=== PATIENT | male | born 2000 | race Caucasian/White ===

== ENCOUNTER 2021-01-24 10:21 | Emergency (ER) | payer OTHER, SELFPAY ==
[2021-01-24 10:39] VITALS: BP 140/79; PULSE 85; RESP 20; TEMP 36.6; O2SAT 97; BMI 34.8
--- NOTE | 2021-01-24 11:04 | HMH.EDUTC ---
[facility] Clinical Impression: Thoracic back pain Qualifiers: Chronicity: acute Back pain laterality: midline Qualified Code(s): M54.6 - Pain in thoracic spine Disposition: Home, Self-Care Condition on Discharge: Good Instructions: DI for Thoracic Back Pain, Thoracic Back Pain Additional Instructions: Go home and rest. It would be best if you rested tomorrow too. No heavy lifting. No twisting. Take the oral medications as directed. The muscle relaxer (robaxin) will make you drowsy, so don't drive or operate heavy machinery after taking it. Follow up with your regular doctor. GO TO THE ER FOR ANY WORSENING SYMPTOMS OR CONCERN, ESPECIALLY BOWEL OR BLADDER ISSUES, SADDLE AREA NUMBNESS, FEVER, ETC Prescriptions: predniSONE [Prednisone 20mg Tab] 20 mg PO BID 5 Days #10 tab Transmission Status: Received by [id number] Methocarbamol [Robaxin 500mg Tab] 500 mg PO BIDP PRN #30 tab PRN Reason: Muscle Spasm Transmission Status: Received by [id number] Referrals: True Mendoza MD [Primary Care Provider] - Forms: Work/School Release Time of Disposition: 11:46 Medical Decision Making - Medical Records Medical records reviewed: No: I reviewed the patient's medical records. - Aashish Inquiry Pt receiving controlled substance: No Vital Signs: 01/24/21 10:39 01/24/21 11:10 Temperature 97.9 F 97.9 F Temperature Source Oral Pulse Rate 85 Pulse Rate [Right Brachial] 85 Respiratory Rate 20 20 Blood Pressure 140/79 Blood Pressure [Right Arm] 140/79 Blood Pressure Mean [Right Arm] 99 Blood Pressure Source [Right Arm] Automatic Cuff Blood Pressure Position [Right Arm] Sitting 02 Sat by Pulse Oximetry 97 Oxygen Delivery Method Room Air - Radiology Data #1 Image(s): T-Spine Image Reviewed: Yes I reviewed the patient's radiology image, Yes I have reviewed radiologist's interpretation Preliminary Findings: Abnormal (patient was notified of the results of this x-ray and instructed to follow up with pcp regarding further evaluation. ), No Fracture Seen [facility] [place] - General Stated complaint: middle/lower back pain Time Seen by Provider: 01/24/21 11:04 Mode of Arrival: Ambulatory Source of Information: Patient Limitations: No Limitations Description of Symptoms (Recalled from Triage Doc. by RN): PATIENT C/O MID BACK PAIN THAT RADIATES TO LOWER BACK SINCE MONDAY. 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 He denies any known injury. He states that he has had back pain on and off since he was in high school, but this has been worse than his normal pain. - Related Data Previous Rx's Medication Instructions Recorded Methocarbamol [Robaxin 500mg Tab] 500 mg PO BIDP PRN #30 tab 01/24/21 predniSONE [Prednisone 20mg 20 mg PO BID 5 Days #10 tab 01/24/21 Tab] Allergies Allergy/AdvReac Type Severity Reaction Status Date / Time azithromycin Allergy Verified 01/24/21 10:43 - Worker's Comp Is this a Worker's Comp case?: No [facility] History - Hepatitis A Screen Drug use history?: No High risk sexual behaviors?: No History of sexually transmitted infection?: No Currently employed?: No Childcare worker?: No Do you have indoor plumbing?: Yes Do you have electricity?: Yes Attestation statement:: This patient has been screened for Hepatitis A risk factors. I have reviewed the patient's past medical history: Yes - Social History Smoking Status: Never smoker Alcohol Intake: never Occupational Status: other Household Members: adopted family ROS Obtained: Yes All systems reviewed & no
[2021-01-24 11:10] VITALS: BP 140/79; PULSE 85; RESP 20; TEMP 36.6; O2SAT 97
--- NOTE | 2021-01-24 11:10 | XR_ITS ---
PROCEDURE: XR THORACIC SPINE 3V CLINICAL INDICATION: thoracic back pain, no recent injury COMPARISON: No exams were available for comparison FINDINGS: There is slight decrease in height anteriorly of the T11 vertebral body. There are no previous exams for comparison to determine if this is acute or chronic. CT or MRI may provide further evaluation. There is a nodular opacity in the left lower lobe at 19 mm. There is mild midthoracic curvature convex right. Other findings:None. IMPRESSION: Minimal wedging of T11 age indeterminate. 19 mm left lower lobe nodule. This may be better evaluated with chest CT Dictated by: Cheko Quiroz MD 01/24/2021 11:47 Cheko Quiroz MD in [place] 01/24/2021 11:47
== END 2021-01-24 11:53 | disposition home or self-care (01) ==
PROVIDERS: Emergency Provider Nurse Practitioner Family; PCP Internal Medicine Adolescent Medicine
DX: M54.6 Pain in thoracic spine (principal); M54.5 Low back pain
CPT/HCPCS: 72072; 99202; G0463

== ENCOUNTER 2023-07-23 17:15 | Emergency (ER) | payer OTHER, SELFPAY ==
[2023-07-23 17:16] VITALS: BP 156/96; PULSE 76; RESP 18; TEMP 36.8; O2SAT 98; BMI 38.0
--- NOTE | 2023-07-23 17:32 | EXP.UTC ---
Discharge Plan Disposition Patient Disposition: Home, Self-Care Condition: Good Prescriptions Prescriptions: New doxycycline monohydrate [doxycycline monohydrate] 100 mg tablet 100 mg PO Q12 7 Days Qty: 14 0RF No Action methocarbamol 500 MG tablet 500 mg PO BIDP PRN (Reason: Muscle Spasm) Qty: 30 0RF prednisone 20 MG tablet 20 mg PO BID 5 Days Qty: 10 0RF Referrals Follow up/Referrals: True Mendoza MD [Primary Care Provider] - See instructions Activity Restrictions/Add. Instructions Additional Instructions/Restrictions: Drink plenty of fluids. Water would be the best thing to drink. Take tylenol for pain or fever. Take the medications as directed. Follow up with your regular doctor. GO TO THE ER FOR ANY WORSENING SYMPTOMS Clinical Impressions Clinical Impression: Urethritis Instructions Patient Instructions: Urethritis, DI for Urethritis Discharge ED Provider: Héctor Pabon [facility] [place] HPI General Stated complaint: pain while urinating Mode of Arrival: Ambulatory Source of Information: Patient Limitations: No Limitations Time Seen by Provider: 07/23/23 17:32 Description of Symptoms (Recalled from Triage Doc. by RN): Pain with urination for 2 days. HEENT Symptoms (Recalled from RN notes): No Resp Symptoms (Recalled from RN notes): No Skin Symptoms (Recalled from RN notes): No MS Symptoms (Recalled from RN notes): No Functional Status (Recalled from RN notes): wnl History of Present Illness Provider Complaint: He state that he has had urethral burning with urination for the past 3 to 4 days. Related Data Previous Rx's Medication Instructions Recorded methocarbamol 500 mg tablet 500 mg PO BIDP PRN Muscle Spasm 01/24/21 #30 tabs prednisone 20 mg tablet 20 mg PO BID 5 days #10 tabs 01/24/21 doxycycline monohydrate 100 mg 100 mg PO Q12 7 days #14 tabs 07/23/23 tablet Allergies Allergy/AdvReac Type Severity Reaction Status Date / Time azithromycin Allergy Verified 01/24/21 10:43 Worker's Comp Is this a Worker's Comp case?: No [facility] Disclaimer: The information contained in this section may have been updated after the patient was seen, as this information can be updated by other users. Social History Smoking Status: Never smoker alcohol intake: never current occupational status: other Travel in the last 8 weeks: None household members: adopted family ROS Obtained: Yes All systems reviewed & no additional complaints except as documented Constitutional Constitutional: Denies chills and Denies fever(s) Eyes Eyes: Denies eye discharge ENT Ears, Nose, Mouth, and Throat: Denies dizziness, Denies otalgia and Denies sore throat Cardiovascular Cardiovascular: Denies chest pain Respiratory Respiratory: Denies shortness of breath, Denies chest congestion, Denies cough, Denies stridor and Denies wheezing Gastrointestinal Gastrointestingal: Denies nausea or vomiting Genitourinary Male Genitourinary: Reports as per HPI, Reports urinary frequency and Reports urinary hesitancy Musculoskeletal Musculoskeletal: Reports system reviewed and no additional complaints, except as documented and Denies arthralgias Integumentary/Breasts Skin/Breast: Denies rash Neurologic Neurologic: Denies dizziness and Denies paresthesias Allergic/Immunologic Allergic/Immunologic: Denies wheezing Physical Exam General General appearance: alert and in no apparent distress Head Head exam: atraumatic, normocephalic and normal inspection Eye Eye exam: Present normal appearance, PERRL and EOMI ENT ENT exam: Present normal exam, normal oropharynx, mucous membranes moist, TM's normal bilaterally and normal external ear exam Neck Neck exam: Present normal inspection, full ROM and trachea midline; Absent meningismus or lymphadenopathy Chest Chest inspection: Present normal inspection and symmetric chest wall rise; Absent tenderness Respiratory Respiratory exam: Present normal lung
[2023-07-23 17:35] LABS: Microscopic, Urine URINE MICROSCOPIC (MICROSCOPIC)
[2023-07-23 17:39] LABS: Appearance,Urine CLEAR (Clear); Bilirubin,Urine Negative (Negative); Blood, Urine Negative (Negative); Color,Urine YELLOW (Yellow); Glucose,Urine (UA) Negative (Negative); Ketones,Urine Negative (Negative); Leukocyte Esterase,Urine Negative (Negative); Nitrate,Urine Negative (Negative); Protein,Urine Negative (Negative); Urobilinogen,Urine 0.2 EU/dl (0.2)
[2023-07-23 18:02] LABS: WBC,Urine Occasional #/hpf (0-3)
[2023-07-23 18:10] VITALS: BP 156/96; PULSE 76; RESP 18; TEMP 36.8; O2SAT 98
[2023-07-25 22:12] LABS: Neisseria gonorrhoeae, NAA Negative (Negative)
== END 2023-07-23 18:11 | disposition home or self-care (01) ==
PROVIDERS: Emergency Provider Nurse Practitioner Family; PCP Internal Medicine Adolescent Medicine
DX: N34.2 Other urethritis (principal)
CPT/HCPCS: 81001; 87086; 87491; 87591; 99212; 99214; G0463

== ENCOUNTER 2024-01-20 15:03 | Emergency (ER) | payer OTHER, SELFPAY ==
[2024-01-20 15:30] VITALS: BP 161/99; PULSE 81; RESP 19; TEMP 37.1; O2SAT 97; BMI 37.3
[2024-01-20 15:51] LABS: Coronavirus 19, PCR Not Detected (NotDetected); Influenza A, PCR Not Detected (NotDetected); Influenza B, PCR Not Detected (NotDetected)
--- NOTE | 2024-01-20 15:58 | EXP.UTC ---
Discharge Plan Disposition Patient Disposition: Home, Self-Care Condition: Good Referrals Follow up/Referrals: True Mendoza MD [Primary Care Provider] - See instructions Activity Restrictions/Add. Instructions Additional Instructions/Restrictions: No sign of a bacterial infection. Likely viral. Viruses can take 7-14 days to run their course. Nasal saline and bulb syringe or nose Chaya to remove nasal drainage to help with nasal congestion. Hard to eat, drink, sleep with nasal congestion so important to keep this cleaned out. Monitor temp. Tylenol or Motrin as needed for pain or fever Encourage fluids, water, Gatorade, Powerade, Pedialyte if infant/toddler/child Warm salt water gargles Warm fluids Sore throat lozenges Sleep elevated Humidifier/vaporizer Follow-up immediately for new or worsening symptoms or no noticeable improvement over the next 48-72 hours. Clinical Impressions Clinical Impression: Upper respiratory infection, viral Instructions Patient Instructions: Common Cold Discharge ED Provider: Deanna ([facility])[place] [facility] [place] General Stated complaint: exposed to covid-tegan, sore throat, JIMENEZ Mode of Arrival: Ambulatory Source of Information: Patient Limitations: No Limitations Time Seen by Provider: 01/20/24 15:58 Description of Symptoms (Recalled from Triage Doc. by RN): Pt has been exposed to covid and flu at work. His symptoms are runny nose, JIMENEZ, nasal congestion, and cough. HEENT Symptoms (Recalled from RN notes): Yes Resp Symptoms (Recalled from RN notes): No Skin Symptoms (Recalled from RN notes): No MS Symptoms (Recalled from RN notes): No Functional Status (Recalled from RN notes): n/a History of Present Illness Provider Complaint: 23 yr old presents for runny nose, JIMENEZ, nasal congestion, and cough. exposed to covid and flu at work. Related Data Allergies Allergy/AdvReac Type Severity Reaction Status Date / Time azithromycin Allergy Verified 01/20/24 15:41 Worker's Comp Is this a Worker's Comp case?: No [facility] Disclaimer: The information contained in this section may have been updated after the patient was seen, as this information can be updated by other users. 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 alcohol intake: never current occupational status: other Travel in the last 8 weeks: None household members: adopted family ROS Obtained: Yes All systems reviewed & no additional complaints except as documented Constitutional Constitutional: Reports system reviewed and no additional complaints, except as documented, Reports as per HPI, Reports fever(s) and Reports headache(s) Eyes Eyes: Reports system reviewed and no additional complaints, except as documented ENT Ears, Nose, Mouth, and Throat: Reports system reviewed and no additional complaints, except as documented, Reports as per HPI, Reports headache(s), Reports nasal congestion, Reports nasal discharge, Reports sinus pressure and Reports sore throat Cardiovascular Cardiovascular: Reports system reviewed and no additional complaints, except as documented Respiratory Respiratory: Reports system reviewed and no additional complaints, except as documented, Reports as per HPI and Reports cough Gastrointestinal Gastrointestingal: Reports system reviewed and no additional complaints, except as documented Musculoskeletal Musculoskeletal: Reports system reviewed and no additional complaints, except as documented Integumentary/Breasts Skin/Breast: Reports system reviewed and no additional complaints, except as documented Neurologic Neurologic: Reports system reviewed and no additional complaints, except as documented and Reports headache(s) Endocrine Endocrine: Reports system reviewed and no additional complaints, except as documented Hematologic/Lymphatic Henatologic/Lymphatic: Reports system reviewed and no additional complaints, except as documented Allergic/Immunologic Allergic/Immunologic: Reports system reviewed and no additional complaints, except as documented Physical Exam General General appearance: alert and in no apparent distress Head Head exam: atraumatic Eye Eye exam: Present normal appearance and PERRL ENT ENT exam: Present normal exam, normal oropharynx and TM's normal bilaterally Respiratory Respiratory exam: Present normal lung sounds bilaterally Cardiovascular Cardiovascular exam: Present regular rate and normal rhythm Neurological Exam Neurological exam: Present alert Skin Skin exam: Present warm and intact Medical Decision Making Medical Records Medical records reviewed: Yes I reviewed the patient's medical records. Aashish Inquiry Pt receiving controlled substance: No Aashish was queried for this patient: No Vital Signs: 01/20/24 15:30 Temperature 98.7 F Temperature Source Oral Pulse Rate [Right Radial] 81 Respiratory Rate 19 Blood Pressure [Right Arm] 161/99 H Blood Pressure Mean [Right Arm] 119 Blood Pressure Source [Right Arm] Automatic Cuff Blood Pressure Position [Right Arm] Sitting 02 Sat by Pulse Oximetry 97 Oxygen Delivery Method Room Air Lab Data Lab results reviewed: Yes I reviewed the patient's lab results. Orders (Tests/Meds): ORDERS Category Date Time Status Rapid PCR Covid and Flu A/B Stat Lab 01/20/24 15:36 Received
[2024-01-20 16:20] VITALS: BP 161/99; PULSE 81; RESP 19; TEMP 37.1; O2SAT 97
== END 2024-01-20 16:23 | disposition home or self-care (01) ==
PROVIDERS: Emergency Provider Nurse Practitioner Family; PCP Internal Medicine Adolescent Medicine
DX: R51.9 Headache, unspecified (principal); R09.81 Nasal congestion; R07.0 Pain in throat; J06.9 Acute upper respiratory infection, unspecified; R05.9 Cough, unspecified; B34.9 Viral infection, unspecified
CPT/HCPCS: 87636; 99212; 99213; G0463

== ENCOUNTER 2024-02-11 14:47 | Outpatient (CLI) | payer OTHER, SELFPAY ==
--- NOTE | 2024-02-11 15:12 | XR_ITS ---
PROCEDURE INFORMATION: Exam: XR Chest Exam date and time: 02/11/2024 3:04 PM Age: 23 years old Clinical indication: Cough; Additional info: Cough, bronchitis TECHNIQUE: Imaging protocol: Radiologic exam of the chest. Views: 2 views. COMPARISON: CR XR THORACIC SPINE 3V 01/24/2021 11:16 AM FINDINGS: Lungs: Unremarkable. No consolidation. Pleural spaces: Unremarkable. No pleural effusion. No pneumothorax. Heart/Mediastinum: Unremarkable. No cardiomegaly. Bones/joints: Unremarkable. IMPRESSION: No acute findings.
== END 2024-02-11 23:59 ==
LOC: RAD 14:47
PROVIDERS: PCP Internal Medicine Adolescent Medicine; Visit Provider Physician Assistant
DX: R04.2 Hemoptysis (principal)
CPT/HCPCS: 71046

== ENCOUNTER 2024-05-07 04:15 | Emergency (ER) | payer OTHER, SELFPAY ==
[2024-05-07 04:16] VITALS: BP 156/99; PULSE 86; RESP 20; TEMP 36.7; O2SAT 100; BMI 35.4
--- NOTE | 2024-05-07 04:22 | XR_ITS ---
PROCEDURE INFORMATION: Exam: XR Left Hand Exam date and time: 05/07/2024 4:24 AM Age: 23 years old Clinical indication: Pain; Finger(s); Left; Additional info: Left little finger distal injury rule out open FX TECHNIQUE: Imaging protocol: Radiologic exam of the left hand. Views: 3 or more views. COMPARISON: No relevant prior studies available. FINDINGS: Bones/joints: Comminuted fracture involving the tuft of the 5th distal phalanx with displacement of the fracture fragments. Bones are otherwise intact. No dislocation. Soft tissues: Severe soft tissue injury/laceration of the 5th distal finger tip including the nail bed. No radiopaque foreign body. IMPRESSION: Severe soft tissue injury/laceration of the 5th distal finger tip with an open comminuted tuft fracture of the 5th distal phalanx.
--- NOTE | 2024-05-07 04:30 | HMH.EDGENADL ---
Discharge Plan Disposition Patient Disposition: Xfer Short-Term Hosp Chief Complaint: Animal Bite Referrals Follow up/Referrals: True Mendoza MD [Primary Care Provider] - See instructions Activity Restrictions/Add. Instructions Additional Instructions/Restrictions: Check into the emergency department at [facility] with the packet which will be provided here. Go directly to the emergency department after leaving here. Clinical Impressions Clinical Impression: Open fracture of distal phalanx of digit of left hand, Dog bite, Superficial laceration of face Instructions Patient Instructions: Animal Bites Discharge ED Provider: Vick Clemons General Adult HPI General Chief complaint: Animal Bite Stated complaint: cut on lip and L pinky Time Seen by Provider: 05/07/24 04:17 Mode of Arrival: Ambulatory Source of Information: Patient Limitations: No Limitations Description of Symptoms (Recalled from ER Triage Doc. by RN): Pt to ED with dog bite to R face and left pinky finger History of Present Illness HPI narrative: Please note that above description of symptoms, in this electronic medical record under categorization of recalled from ER triage doctor by RN are reflective of an initial nursing assessment, however, is not reflective of my full history and physical exam that was personally taken and clarified. Consequentially, this preceding description of symptoms, which may include the patient's categorized chief complaint in the EMR, do not reflect my personal clinical impression, and the ultimate description of history of present illness and patient stated complaints should be deferred to this section of the note. Unless stated otherwise or congruent with this section of the note, additional signs, symptoms, or incongruence should be interpreted as inaccurate with my clinical impression. Related Data Allergies Allergy/AdvReac Type Severity Reaction Status Date / Time azithromycin Allergy Verified 01/20/24 15:[address] [facility] Disclaimer: The information contained in this section may have been updated after the patient was seen, as this information can be updated by other users. 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 alcohol intake: never current occupational status: other Travel in the last 8 weeks: None household members: adopted family ROS Obtained: Yes All systems reviewed & no additional complaints except as documented Physical Exam General General appearance: alert and in no apparent distress Head Head exam: atraumatic and normocephalic Eye Eye exam: Present normal appearance, PERRL and EOMI ENT ENT exam: Present mucous membranes moist and other (Multiple superficial abrasions overlying right upper lip with a couple of punctate through and through lacerations into oral mucosa.) Neck Neck exam: Present normal inspection, full ROM and trachea midline Respiratory Respiratory exam: Absent respiratory distress, wheezes, stridor, accessory muscle use or prolonged expiratory phase Cardiovascular Cardiovascular exam: Present normal rhythm Abdominal Exam Abdominal exam: Present soft; Absent distention, tenderness, guarding, rebound or rigidity Extremities Exam Extremities exam: Present tenderness and other (Partial amputation distal aspect of left fifth finger. Complete nail avulsion. Palpable bone.); Absent edema Neurological Exam Neurological exam: Present alert, oriented X3, CN II-XII intact and normal gait; Absent motor sensory deficit Skin Skin exam: Present warm and dry; Absent diaphoresis or erythema Medical Decision Making Medical Records Medical records reviewed: Yes I reviewed the patient's medical records. Aashish Inquiry Pt receiving controlled substance: No Aashish was queried for this patient: No Vital Signs: 05/07/24 04:16 Temperature 98.0 F Temperature Source Oral Pulse Rate [Right Radial] 86 Respiratory Rate 20 Blood Pressure [Right Arm] 156/99 H Blood Pressure Mean [Right Arm] 118 Blood Pressure Source [Right Arm] Automatic Cuff Blood Pressure Position [Right Arm] Sitting 02 Sat by Pulse Oximetry 100 Oxygen Delivery Method Room Air Orders (Tests/Meds): ED MEDICATIONS Generic Name Dose Route Start Last Admin Trade Name Freq PRN Reason Stop Dose Admin Cefazolin Sodium 2 gm/ Sodium 100 mls @ 200 mls/hr 05/07/24 04:47 Chloride IV 05/07/24 05:16 ONCE ONE Discontinued Medications Generic Name Dose Route Start Last Admin Trade Name Freq PRN Reason Stop Dose Admin Acetaminophen 1,000 mg 05/07/24 04:22 05/07/24 04:32 Acetaminophen 500mg Tab PO 05/07/24 04:23 1,000 mg ONCE ONE Administration Ibuprofen 600 mg 05/07/24 04:22 05/07/24 04:33 Ibuprofen 600 Mg Tablet PO 05/07/24 04:23 600 mg ONCE ONE Administration Lidocaine/Epinephrine 20 ml 05/07/24 04:30 05/07/24 04:31 Lidocaine 1% W/Epi 1:100,000 20ml Vial SQ 05/07/24 04:31 20 ml ONCE ONE Administration Oxycodone HCl 5 mg 05/07/24 04:22 05/07/24 04:33 Oxycodone 5mg Immediate Release Tablet PO 05/07/24 04:23 5 mg ONCE ONE Administration Tetanus/Reduced Diphtheria/Acell Pertussis 0.5 ml 05/07/24 04:22 05/07/24 04:33 Tet/Diphth/Pert-Adult 0.5ml Syringe IM 05/07/24 04:23 0.5 ml .ONCE ONE Administration ORDERS Category Date Time Status Hand XR left minimum 3 views [XR hand LT min 3V] Stat Exams 05/07/24 04:22 Taken Medical Decision Narrative: 23-year-old male otherwise healthy presenting with dog bite. Patient states that his dog bit him just before arrival. Vitamins right upper lip, as well as left little finger. Patient has had rabies vaccinations in the past, is not currently up-to-date, but is his dog and has not been exhibiting any abnormal behavior otherwise. No other injuries were sustained. Patient up-to-date on vaccinations himself other than tetanus, he does not remember his last Tdap. History was obtained via conversation with patient. On arrival, patient hemodynamically stable, alert, oriented x4, appropriate, GCS 15, moving all extremities spontaneously, pupils equal and reactive to light. Full physical exam performed and significant for superficial abrasions overlying right upper lip without any lacerations amenable to closure. He does have a couple of punctate through and through lacerations going into oral mucosa. No dental trauma. Left upper extremity with avulsion of distal aspect of left small finger with partial nail avulsion. Eponychial fold intact. Palpable bone. Neurovascularly intact. Differential includes open fracture, partial amputation, nailbed injury, facial laceration, foreign body, among others.. Patient was given Tdap, oxycodone, Tylenol, Motrin for symptomatic management and correction of underlying abnormalities. Workup independently interpreted and significant for open fracture of distal tuft with partial amputation of left small finger. See radiology read for full review of final results. Due to bleeding, lidocaine with epinephrine was placed in medicine, patient's digit was placed in line with epi to achieve hemostasis. Because patient has complex, open, partial amputation of distal digit, warrants evaluation by hand surgeon. [facility] was contacted and case was discussed at length, graciously excepted for transfer under Dr. Fajardo. It Architect disclaimer Much of this encounter note is an electronic decision science analyst spoken language to printed text. Electronic decision science analyst of the spoken language may permit errors. Although I have reviewed the note, some errors may still exist. Critical Care Critical Care Time Critical Care Time: No
[2024-05-07] MEDS: LIDOCAINE 1% W/EPI 1:100,000 20ML VIAL 20 ML SQ (04:31)
[2024-05-07] MEDS: ACETAMINOPHEN 500MG TAB 1000 MG PO (04:32)
[2024-05-07] MEDS: IBUPROFEN 600 MG TABLET PO (04:33)
[2024-05-07] MEDS: OXYCODONE 5MG IMMEDIATE RELEASE TABLET 5 MG PO (04:33)
[2024-05-07] MEDS: TET/DIPHTH/PERT-ADULT 0.5ML SYRINGE 0.5 ML IM (04:33)
--- NOTE | 2024-05-07 04:46 | PC.NURSE ---
Called [facility] about transfer of the pt for Hand specialist. speaking with Dr Clemons now. CR
[2024-05-07] MEDS: CEFAZOLIN SODIUM 2 GM in 0.9 % SODIUM CHLORIDE 100 ML IV (04:58)
--- NOTE | 2024-05-07 05:11 | PC.NURSE ---
report called to Paige HADDAD @ [facility] [place]
[2024-05-07 05:26] VITALS: BP 156/99; PULSE 86; RESP 20; TEMP 36.7; O2SAT 100
== END 2024-05-07 05:28 | disposition short-term general hospital (02) ==
PROVIDERS: Emergency Provider Emergency Medicine; PCP Internal Medicine Adolescent Medicine
DX: S62.637B Displaced fracture of distal phalanx of left little finger, initial encounter for open fracture (principal); S01.81XA Laceration without foreign body of other part of head, initial encounter; W54.0XXA Bitten by dog, initial encounter; Z23 Encounter for immunization
CPT/HCPCS: 73130; 90471; 90715; 96365; 99285; J0690

== ENCOUNTER 2024-07-24 09:05 | Emergency (ER) | payer OTHER, SELFPAY ==
[2024-07-24 09:10] VITALS: BP 146/92; PULSE 111; RESP 20; TEMP 37.7; O2SAT 95; BMI 36.7
--- NOTE | 2024-07-24 09:19 | EXP.UTC ---
Discharge Plan Disposition Patient Disposition: Home, Self-Care Condition: Good Prescriptions Prescriptions: New ctoslxmuqspcucu-cwkzpojpm-LH [Bromfed DM] 2-30-10 mg/5 mL Syrup 5 ml PO Q6H PRN (Reason: Cough) Qty: 240 0RF amoxicillin 500 mg tablet 500 mg PO TID 10 Days Qty: 30 0RF Referrals Follow up/Referrals: True Mendoza MD [Primary Care Provider] - See instructions Activity Restrictions/Add. Instructions Additional Instructions/Restrictions: Drink plenty of fluids. Take tylenol or ibuprofen for pain or fever. Take the medications as directed. Follow up with your regular doctor. GO TO THE ER FOR ANY WORSENING SYMPTOMS Clinical Impressions Clinical Impression: COVID-19, Pharyngitis Stand Alone Forms Stand Alone Forms: Work/School Release Instructions Patient Instructions: DI for Viral Syndrome Print Language Print Language: Maori Discharge ED Provider: Héctor Pabon [facility] [place] HPI General Stated complaint: headache, sore throat, vomiting, body aches Time Seen by Provider: 07/24/24 09:19 Related Data Previous Rx's ?Medication ?Instructions ?Recorded amoxicillin 500 mg tablet 500 mg PO TID 10 days #30 tabs 07/24/24 rtfycantflscvxt-afgffnchoinkzoe-PG 5 ml PO Q6H PRN Cough #240 mL 07/24/24 2 mg-30 mg-10 mg/5 mL oral syrup (Bromfed DM) Allergies Allergy/AdvReac Type Severity Reaction Status Date / Time azithromycin Allergy Verified 01/20/24 15:41 [facility] Disclaimer: The information contained in this section may have been updated after the patient was seen, as this information can be updated by other users. Medical History (Updated 07/24/24 @ 10:19 by Héctor Pabon APRN) No significant past medical history Social History TUCKER) Smoking Status: Never smoker alcohol intake: never current occupational status: other Travel in the last 8 weeks: None household members: adopted family ROS Obtained: Yes All systems reviewed & no additional complaints except as documented Constitutional Constitutional: Reports chills and Reports fever(s) Eyes Eyes: Denies eye discharge ENT Ears, Nose, Mouth, and Throat: Reports as per HPI Cardiovascular Cardiovascular: Denies chest pain Respiratory Respiratory: Denies chest congestion and Reports cough Gastrointestinal Gastrointestingal: Reports nausea; Denies abdominal pain, constipation, cramping, diarrhea or vomiting Musculoskeletal Musculoskeletal: Denies arthralgias Integumentary/Breasts Skin/Breast: Denies rash Neurologic Neurologic: Denies paresthesias Physical Exam General General appearance: alert and in no apparent distress Head Head exam: atraumatic, normocephalic and normal inspection Eye Eye exam: Present normal appearance, PERRL and EOMI ENT ENT exam: Present mucous membranes moist and normal external ear exam Expanded ENT Exam TM/Canal exam: Bilateral TM: erythema and bulging Nose exam: Absent sinus tenderness Mouth exam: Present normal external inspection; Absent drooling Teeth exam: Present normal inspection Throat exam: Present tonsillar erythema, tonsillomegaly and tonsillar exudate Neck Neck exam: Present normal inspection, full ROM and trachea midline; Absent tenderness, meningismus or lymphadenopathy Chest Chest inspection: Present normal inspection and symmetric chest wall rise; Absent tenderness Respiratory Respiratory exam: Present normal lung sounds bilaterally; Absent respiratory distress, wheezes, stridor or accessory muscle use Cardiovascular Cardiovascular exam: Present regular rate and normal rhythm; Absent systolic murmur or diastolic murmur Abdominal Exam Abdominal exam: Present soft and normal bowel sounds; Absent distention, tenderness, guarding, rebound or rigidity Extremities Exam Extremities exam: Present normal inspection and normal capillary refill; Absent calf tenderness Back Exam Back exam: Present normal inspecti
[2024-07-24 09:25] LABS: Influenza A, PCR Not Detected (NotDetected); Influenza B, PCR Not Detected (NotDetected)
[2024-07-24 09:25] LABS: UTC Strep Screen (Rapid) Negative (Negative)
[2024-07-24 10:12] LABS: Coronavirus 19, PCR Detected (NotDetected)
[2024-07-24 10:15] VITALS: BP 146/92; PULSE 111; RESP 20; TEMP 37.7; O2SAT 95
== END 2024-07-24 10:19 | disposition home or self-care (01) ==
PROVIDERS: Emergency Provider Nurse Practitioner Family; PCP Internal Medicine Adolescent Medicine
DX: U07.1 COVID-19 (principal); J02.8 Acute pharyngitis due to other specified organisms; R51.9 Headache, unspecified; R11.2 Nausea with vomiting, unspecified
CPT/HCPCS: 87636; 87880; 99212; 99214; G0463

== ENCOUNTER 2025-11-18 08:40 | Outpatient (CLI) | payer OTHER, SELFPAY ==
[2025-11-18 14:32] LABS: Coronavirus 19, PCR Not Detected (NotDetected); Influenza A, PCR Not Detected (NotDetected); Influenza B, PCR Not Detected (NotDetected)
--- OUTSIDE RECORDS SUMMARY | 2025-11-21 08:42 | XMS_ITS | Clinical Summary ---
Author Organization [facility] Address [address] [place] [address] Care Team Providers Care Sleeve Setter Lockstitch Name Role Phone True Mendoza MD Primary Care Provider + [phone] Allergies Active Allergy Reactions Criticality Noted Date Comments Azithromycin Rash Low 06/10/2020 Fluticasone Propionate Rash Low 06/10/2020 Medications No known medications Social History Tobacco Use Types Packs/Day Years Used Date Smoking Tobacco: Never Smokeless Tobacco: Never Alcohol Use Standard Drinks/Week Comments Never 0 (1 standard drink = 0.6 oz pur e alcohol) AUDIT-C Answer Date Recorded Q1: How often do you have a drink containing alc ohol? Never 06/10/2020 Average Number of Drinks Not on file 020 Frequency of Binge Drinking Not on file 05/27 Abuse Screen Answer Date Recorded Unsafe at Home or Work/School Not on file Feels Threatened by Someone? Not on file 10/2023 Does Anyone Keep You from Co ntacting Others or Doint Things Outside the Home? Not on file 09/07/2023 Physical Sign of Abuse Present Not on file 1 Housing Stability Answer Date Recorded Current Living Arrangements Not on file 08/27 Potentially Unsafe Housing Conditions Not on debi e 09/07/2023 Family and Community Support Answer Isai e Recorded Help with Day-to-Day Activities Not on file 09/07/2023 Lonely or Isolated Not on file 09/07/2023 Employment Answer Date Recorded Do you want help finding or keeping work or a shanta b? Not on file 09/07/2023 Disabilities Answer Date Recorded Concentrating, Remembering, or Making Decisions Difficulty Not on file 09/07/2023 Doing Errands Independently Difficulty Not on fi le 09/07/2023 Education Answer Date Recorded Help with school or training? Not on file Preferred Language Not on file 09/07/2023 Sex and Gender Information Value Date Recorded Sex Assigned at Not on file Legal Sex Male 8:18 AM EDT Gender Identity Not on file Sexual Orientation Not on file Last Filed Vital Signs Vital Sign Reading Time Taken Comments Blood Pressure 156/89 06/10/2020 8:30 AM EDT Pulse 80 06/10/2020 8:30 AM EDT Temperature 36.4 C (97.6 F) 06/10/2020 8:30 AM EDT Respiratory Rate 16 06/10/2020 8:30 AM EDT Oxygen Saturation 97% 06/10/2020 8:30 AM EDT Inhaled Oxygen Concentration - - Weight 111 kg (245 lb) 06/10/2020 8:30 AM EDT Height 170.2 cm (5' 7 ) 06/10/2020 8:30 AM EDT Body Mass Index 38.37 06/10/2020 8:30 AM EDT Plan of Treatment Health Maintenance Due Date Last Done Comments ANNUAL PHYSICAL 1999 HEPATITIS C SCREENING 1999 TDAP/TD VACCINES (1 - Tdap) 2018 INFLUENZA VACCINE 06/27/2025 Pneumococcal Vaccine 0-49 Aged Out No longer eligible based on patient's age to complete this topic Insurance Care Teams Sleeve Setter Lockstitch Relationship Specialty Start Date End Date True Mendoza MD [address] [place] [address] PCP - General Adolescent Medicine 06/10/20
--- OUTSIDE RECORDS SUMMARY | 2025-11-21 08:42 | XMS_ITS | Clinical Summary ---
Author Organization [facility] Address [address] [place] [address] Care Team Providers Care Kitchen Mechanic Name Role Phone No, Pcp PACKAGE CENTER SUPERVISOR Primary Care Provider Unavailabl e Social History Tobacco Use Types Packs/Day Years Used Date Smoking Tobacco: Never Assessed Sex and Gender Information Value Date Recorded Sex Assigned at Not on file Legal Sex Male 2:13 PM EDT Gender Identity Not on file Sexual Orientation Not on file Plan of Treatment Not on file Medical Devices Not on file Care Teams Kitchen Mechanic Relationship Specialty Start Date End Date No, Pcp, PACKAGE CENTER SUPERVISOR N/A Do not use PCP - General Family Medicine 05/28/20
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
--- OUTSIDE RECORDS SUMMARY | 2025-11-21 08:42 | XMS_ITS | Clinical Summary ---
Author Organization [facility] Address [address] [place], [place] [id number] Care Team Providers Care Lumber Sorter Machine Name Role Phone True Mendoza MD Primary Care Provider [phone] Allergies Active Allergy Reactions Criticality Noted Date Comments Azithromycin Hives Medium 05/07/2024 Fluticasone Hives Medium 06/12/2024 Medications loratadine (Claritin) 10 MG tablet Take 1 tablet (10 mg) by mouth 1 (one) time each day. Active Active Problems Problem Noted Date Diagnosed Date Dog bite of left hand 06/12/2024 Social History Tobacco Use Types Packs/Day Years Used Date Smoking Tobacco: Never Smokeless Tobacco: Never Tobacco Cessation:Counseling Given: Not Answered Alcohol Use Standard Drinks/Week Comments Yes 0 (1 standard drink = 0.6 oz pur e alcohol) Sex and Gender Information Value Date Recorded Sex Assigned at Not on file Legal Sex Male 4:41 AM EDT Gender Identity Not on file Sexual Orientation Not on file Last Filed Vital Signs Vital Sign Reading Time Taken Comments Blood Pressure 146/111 06/12/2024 9:49 AM EDT Pulse 84 06/12/2024 9:49 AM EDT Temperature 36.7 C (98 F) 05/07/2024 11:02 AM EDT Respiratory Rate 18 05/07/2024 11:02 AM EDT Oxygen Saturation 97% 06/12/2024 9:49 AM EDT Inhaled Oxygen Concentration - - Weight 109 kg (240 lb) 06/12/2024 9:49 AM EDT Height 175.3 cm (5' 9 ) 06/12/2024 9:49 AM EDT Body Mass Index 35.44 06/12/2024 9:49 AM EDT Plan of Treatment Health Maintenance Due Date Last Done Comments [facility]-Depression Screening 1999 [facility]-HIV Screening 1999 [facility]-Hepatitis C Screening 1999 [facility]-Infant/Child/Adol SDOH Screenings 1999 [facility]-Hepatitis B Vaccines (3 of 3 - 3-dose series) 07/19/2000 05/24/2000, 1999 [facility]-IPV Vaccines (4 of 4 - 4-dose series) 2003 05/24/2000, 1999, 1999 [facility]-Varicella Vaccines (2 of 2 - 2-dose childhood series) 2003 05/24/2000 HPV Vaccines (1 - Male 3-dose series) 2014 [facility]- SDOH Screenings 2017 [facility]-Adult SDOH Screenings 2017 [id number] Vaccine (3 - season) 2025 04/22/2021, 04/01/2021 [facility]-Influenza Vaccine (#1) 2025 08/23/2019 [facility]-DTaP,Tdap,and Td Vaccines (6 - Td or Tdap) 05/07/2034 05/07/2024, 08/16/2000, 1999, Additional history exists [facility]-Zoster Vaccines (1 of 2) 2049 05/24/2000 [facility]-HIB Vaccines Completed 05/24/2000, , 1999 [facility]-Obesity Intervention Completed 024, 05/16/2024, 05/16/2024 [facility]-Hepatitis A Vaccines Aged Out No longer eligible based on patient's age to complete this topic [facility]-Pneumococcal Vaccine: Pediatrics (0 to 5 Years) and At-Risk Patients (6 to 49 Years) Aged Out No longer eligible based on patient's age to complete this topic [facility]-Rotavirus Vaccines Aged Out No lo nger eligible based on patient's age to complete this topic Goals Goal Patient Goal Type Associated Problems Recent Progress Patient-Stated? Author Patient will verbalize understanding of orthotic wear, care and precautions x 2 visits. Occupational Therapy No Amanda Whitney Insurance [employer] [facility] [employer] Care Teams Lumber Sorter Machine Relationship Specialty Start Date End Date True Mendoza MD [facility] [id number] PCP - General Internal Medicine 05/07/24
== END 2025-11-18 23:59 | disposition home or self-care (01) ==
LOC: LAB.DROPOF 11-21 08:41
PROVIDERS: PCP Internal Medicine Adolescent Medicine; Visit Provider Student in an Organized Health Care Education/Training Program
DX: J06.9 Acute upper respiratory infection, unspecified (principal)
CPT/HCPCS: 87631